=== PATIENT | male | born 1935 | race Caucasian/White ===

== ENCOUNTER 2016-11-19 09:30 | Inpatient (IN) | payer OTHER ==
[2016-10-24 13:01] VITALS: BMI 29.0
--- NOTE | 2016-10-24 13:45 | PAT Medication Instructions ---
Service Date Oct 24, 2016. Current Home Medication List Acetaminophen Tab (Tylenol), 325-650 MG PO PRN Amlodipine (Norvasc), 5 MG PO QAM Ascorbic Acid (Vitamin C), 500 MG PO QAM Bicalutamide (Casodex), 50 MG PO HS Calcium Carbonate-Vitamin D (Calcium + D), 1 TAB PO BID Coenzyme Q10 (Ubidecarenone) (Coq10), 400 MG PO QAM Corona Dextrin (Fiber Powder), 1 DOSE PO QAM Docusate Sodium (Colace), 1 CAP PO QAM Leuprolide Acetate (Lupron Depot), 30 MG INJ [id number] Levothyroxine Sodium (Levothyroxine Sodium), 1 TAB PO 2xweek Levothyroxine Sodium (Levothyroxine Sodium), 1 TAB PO 5XWEEK Losartan Potassium (Cozaar), 25 MG PO QAM Multivitamin (Multivitamin), 1 TAB PO QAM Ranitidine (Zantac), 150 MG PO QAM Simvastatin (Zocor), 20 MG PO QPM Warfarin Sod (Jantoven), 2.5 MG PO 6XWEEK Warfarin Sod (Jantoven), 3.75 MG PO TUESDAYS Medication Instructions For Your Scheduled Surgery - Continue as directed: Leuprolide Acetate (Lupron Depot), 30 MG INJ [id number] - Check with surgeon for instructions: Bicalutamide (Casodex), 50 MG PO HS - Check with surgeon/coumadin clinic for instructions: Warfarin Sod (Jantoven), 2.5 MG PO 6XWEEK Warfarin Sod (Jantoven), 3.75 MG PO TUESDAYS - Hold the following medications 2 weeks prior to surgery: Coenzyme Q10 (Ubidecarenone) (Coq10), 400 MG PO QAM - Hold the following medications the morning of surgery: Ranitidine (Zantac), 150 MG PO QAM Losartan Potassium (Cozaar), 25 MG PO QAM Multivitamin (Multivitamin), 1 TAB PO QAM Docusate Sodium (Colace), 1 CAP PO QAM Corona Dextrin (Fiber Powder), 1 DOSE PO QAM Calcium Carbonate-Vitamin D (Calcium + D), 1 TAB PO BID Ascorbic Acid (Vitamin C), 500 MG PO QAM - Take the following medications the morning of surgery with a sip of water: Levothyroxine Sodium (Levothyroxine Sodium), 1 TAB PO 2xweek Levothyroxine Sodium (Levothyroxine Sodium), 1 TAB PO 5XWEEK Amlodipine (Norvasc), 5 MG PO QAM Acetaminophen Tab (Tylenol), 325-650 MG PO PRN (if needed) - Take the following medications as scheduled the night before surgery: Simvastatin (Zocor), 20 MG PO QPM Calcium Carbonate-Vitamin D (Calcium + D), 1 TAB PO BID Acetaminophen Tab (Tylenol), 325-650 MG PO PRN (if needed) If you have any questions please call us at [phone] or [phone] or [phone]
[2016-10-24 14:23] LABS: BASO % 0.7 %; BASO ABS # 0.04 K/uL (0-0.2); COMPLETE YES; EOS % 7.8 %; HEMATOCRIT 40.3 % (42-52); IG% 0.3 %; LYMPH % 23.7 %; LYMPH ABS # 1.46 K/uL (1.2-3.4); MEAN CELL VOLUME 94.4 fL (80-100); MEAN CORPUSCULAR HEMOGLOBIN 31.9 pg (25-34); MEAN CORPUSCULAR HGB CONC 33.7 g/dl (32-36); MEAN PLATELET VOLUME 9.2 fL (7.4-10.4); MONO % 9.6 %; NEUT % 57.9 %; PLATELET COUNT 208 K/uL (130-400); RED BLOOD COUNT 4.27 M/uL (4.7-6.1); WHITE BLOOD COUNT 6.15 K/uL (4.8-10.8)
[2016-10-24 14:25] LABS: URINE APPEARANCE CLEAR (CLEAR); URINE BILIRUBIN NEG (NEG); URINE COLOR YELLOW; URINE NITRITE NEG (NEG); URINE PH 7.5 (4.5-7.5); URINE SPECIFIC GRAVITY 1.015 (1.000-1.030); UROBILINOGEN NEG (NEG); ZZUR CULT IF INDIC CLEAN CATCH NO
[2016-10-24 14:29] LABS: MANUAL MICROSCOPIC REQUIRED? NO; REVIEW REQ? NO
[2016-10-24 14:32] LABS: INR 1.9 (0.9-1.1); PARTIAL THROMBOPLASTIN RATIO 1.3; PROTHROMBIN TIME (PATIENT) 21.4 SECONDS (9.0-12.0)
--- NOTE | 2016-10-24 14:34 | DIAGNOSTIC IMAGING REPORT ---
CHEST 2 VIEWS ROUTINE CLINICAL HISTORY: Preoperative chest COMPARISON STUDY: No previous studies for comparison. FINDINGS: The cardiac and mediastinal contours are normal. There is no evidence of focal pulmonary consolidation. There is no evidence of failure. No pleural effusions are visualized.[ There is minor linear atelectasis/scarring within the right middle lobe. Mild soft tissue prominence of the azygos region is likely vascular IMPRESSION: No active disease in the chest. Electronically signed by: Charli Gutierrez M.D. 10/24/2016 2:33 PM Dictated Date/Time: 10/24/2016 2:32 PM
[2016-10-24 15:09] LABS: ESTIMATED AVERAGE GLUCOSE 105 mg/dl; HA1C FLAG Normal (Normal)
[2016-10-24 15:38] LABS: CALCIUM 9.2 mg/dl (8.5-10.1); CREATININE 1.2 mg/dl (0.60-1.40); POTASSIUM 4.3 mmol/L (3.5-5.1)
--- NOTE | 2016-11-18 19:03 | HISTORY & PHYSICAL EXAMINATION ---
DATE OF ADMISSION: 11/19/2016 CHIEF COMPLAINT: Chronic right shoulder pain. HISTORY OF PRESENT ILLNESS: This is an 81-year-old male patient of Dr. Felder complaining of chronic right shoulder pain, longstanding and now progressively getting worse. The patient has failed conservative treatment and wished to proceed with a right total shoulder arthroplasty. The patient has been diagnosed with end-stage osteoarthritis per clinical and radiographic exams. PAST MEDICAL HISTORY: Atrial fibrillation, history of a TIA, abnormal bleeding, acid reflux, prostate cancer and BPH. SOCIAL HISTORY: Nonsmoker, occasional drinker. PAST SURGICAL HISTORY: Tonsils, cataracts and prostate. REVIEW OF SYSTEMS: The patient complains of chronic right shoulder pain. Otherwise, denies any shortness of breath, chest pain, nausea, vomiting or joint complaints. FAMILY HISTORY: Noncontributory. MEDICATIONS: Simvastatin 20 mg daily, fiber daily, docusate sodium daily, ranitidine 75 mg daily, fenofibrate powder daily, leuprolide acetate 30 mg every 4 months, levothyroxine 50 mcg daily, bicalutamide 50 mg daily, Coumadin 2.5 mg 1-1/2 tablet daily, losartan 25 mg daily, amlodipine 5 mg daily, coenzyme Q10 daily, calcium daily, multivitamin daily and vitamin C daily. ALLERGIES: No known drug allergies. PHYSICAL EXAMINATION: GENERAL: Well-developed and well-nourished 81-year-old male patient of Dr. Felder. HEENT: Normocephalic and atraumatic. Extraocular motions are intact. Pupils are equal and reactive to light. HEART: Regular rate and rhythm, no murmurs appreciated. LUNGS: Clear. ABDOMEN: Soft and nontender. Bowel sounds are present. EXTREMITIES: Right shoulder reveals active range of motion to 140, passively to 170. He has 4/5 strength. He has crepitation with passive range of motion. Neurologically and neurovascularly he is intact in his right upper extremity. DIAGNOSES: Right shoulder end-stage osteoarthritis with a history of atrial fibrillation, transient ischemic attack, abnormal bleeding, acid reflux, prostate cancer and benign prostatic hyperplasia. PLAN: The patient was advised of her diagnoses. Indications, risks, benefits and postop course have all been reviewed. The patient wished to proceed with a right total shoulder arthroplasty. Necessary consent forms, preoperative testing and clearances will be obtained. [facility]ITAL[facility]
[~2016-11-19] VITALS: Ht 172.7 cm; Wt 85.8 kg
[2016-11-19] VITALS (9 sets, daily range): BP systolic 104–172; BP diastolic 64–95; PULSE 51–64; TEMP 36.2–36.6; O2SAT 92–97; Ht 172.7 cm; Wt 85.8 kg
[~2016-11-19 09:30] MED LIST: ACET325T96 PO; ACETAMINOPHEN 500 MG TAB PO SCH; AMLO-110 PO; ASCO1CAP3 PO; BICA50TA2 PO; CALC600T9 PO; CEFAZOLIN 2000 MG/60 ML D5W 60 ML IV SCH; COEN400C5 PO; CORN1POW2 PO; CeleBREX 200 MG CAP PO SCH; DEXAMETHASONE 4 MG TAB PO SCH; DOCU-94 PO; FAMOTIDINE 20 MG TAB PO SCH; GABAPENTIN 300 MG CAP PO SCH; LACTATED RINGER'S 1000ML 1,000 ML IV SCH; LEUP30IN3 INJ; LEVO100T7 PO; LEVO50TA6 PO; LOSA1TAB PO; METOCLOPRAMIDE HCL 10 MG TAB PO SCH; MULT-506 PO; ROPIVACAINE 0.5% 5 MG/ML 30 ML VIAL ONE; SIMV20TA2 PO; WARF2.5T8 PO; ZNTT/150 PO
[2016-11-19] MEDS ORDERED: lovenox SC (10:30)
[2016-11-19 10:42] LABS: INR 1.1 (0.9-1.1); PARTIAL THROMBOPLASTIN RATIO 1.1; PROTHROMBIN TIME (PATIENT) 11.4 SECONDS (9.0-12.0)
[2016-11-19] MEDS ORDERED: ENOX80IN SQ (10:50)
[2016-11-19] MEDS ORDERED: LIDOCAINE HCL 2% 2 ML VIAL (20MG/ML) ONE (11:17)
[2016-11-19] MEDS ORDERED: ROCURONIUM BROMIDE 10 MG/ML 5 ML VIAL ONE (11:17)
[2016-11-19] MEDS ORDERED: GLYCOPYRROLATE INJ 0.2 MG/ML VIAL ONE (11:17)
[2016-11-19] MEDS ORDERED: DEXAMETHASONE SOD INJ 4 MG/ML VIAL ONE (11:17)
[2016-11-19] MEDS ORDERED: ONDANSETRON INJ 2 MG/ML 2 ML VIAL ONE (11:17)
[2016-11-19] MEDS ORDERED: NEOSTIGMINE METHYLSULFATE 5 MG/5 ML SYR ONE (11:17)
[2016-11-19] MEDS ORDERED: FENTANYL CITRATE INJ 50 MCG/1 ML 2 ML VIAL ONE (11:17)
[2016-11-19] MEDS ORDERED: PROPOFOL IV EMULSION 10 MG/ML 20 ML VIAL IV ONE (11:17)
[2016-11-19] MEDS ORDERED: MIDAZOLAM HCL 1 MG/ML 2ML VIAL ONE (11:17)
--- NOTE | 2016-11-19 11:18 | History & Physical Bridge Note ---
H&P Re-Evaluation Bridge Note: I have examined the patient, reviewed the History & Physical and in the interval since the performance of the History & Physical I have noted the following changes of clinical significance: No changes noted
[2016-11-19] MEDS ORDERED: BACITRACIN 50000 UNIT VIAL ONE (11:52)
[2016-11-19] MEDS ORDERED: EpINEphrine HCL INJ 1 MG/ML 5ML SYRINGE ONE (11:56)
[2016-11-19] MEDS ORDERED: ATROPINE SULFATE 0.1 MG/ML 5ML SYR IV PRN (13:15)
[2016-11-19] MEDS ORDERED: ONDANSETRON INJ 2 MG/ML 2 ML VIAL IV PRN ×2 (13:15→15:45)
[2016-11-19] MEDS ORDERED: EpHEDrine SULFATE INJ 50 MG/ML AMP IV PRN (13:15)
[2016-11-19] MEDS ORDERED: ESMOLOL HCL 10 MG/ML 10 ML VIAL ONE (15:16)
[2016-11-19] MEDS ORDERED: EpHEDrine SULFATE 50MG/5ML SYR ONE (15:16)
[2016-11-19] MEDS ORDERED: LABETALOL HCL IV 5 MG/ML 20ML IV ONE ×2 (15:23→15:39)
--- NOTE | 2016-11-19 15:34 | [facility] Post Operative Brief Note ---
Immediate Operative Summary Operative Date Nov 19, 2016. Pre-Operative Diagnosis Right shoulder end-stage osteoarthritis Post-Operative Diagnosis Right shoulder end-stage osteoarthritis,biceps tenosynovitis Procedure(s) Performed Right total shoulder arthroplasty,biceps tenodesis Surgeon Dr Barney Indoor Landscape Architect Surgeon(s) Gildardo Molina PA-C Estimated Blood Loss 50ML Findings end stage djd oa Specimens Right Humeral Head Drains 2 hemovac Anesthesia general and regional Complication(s) None Disposition Recovery Room / PACU
[2016-11-19] MEDS ORDERED: BISACODYL 10 MG SUPP PR PRN (15:45)
[2016-11-19] MEDS ORDERED: MAGNESIUM HYDROXIDE SUSP 30 ML UDC PO PRN (15:45)
[2016-11-19] MEDS ORDERED: MoRPHine SULFATE 2 MG/ML CARP IV PRN (15:45)
[2016-11-19] MEDS ORDERED: ALUMINUM/MAGNESIUM SUSP 30 ML UDC PO PRN (15:45)
--- NOTE | 2016-11-19 16:01 | DIAGNOSTIC IMAGING REPORT ---
RIGHT SHOULDER MIN 2 VIEWS ROUTINE CLINICAL HISTORY: Postop examination COMPARISON: None. DISCUSSION: There are postsurgical changes of a total right shoulder arthroplasty. There is no dislocation. Overlying skin chelle and surgical drains are evident. IMPRESSION: Postsurgical changes of a total right shoulder arthroplasty. Electronically signed by: Charli Gutierrez M.D. 11/19/2016 4:00 PM Dictated Date/Time: 11/19/2016 3:59 PM
[2016-11-19] MEDS: FENTANYL CITRATE INJ 50 MCG/1 ML 2 ML VIAL IV PRN ×2 (16:09→16:16)
--- NOTE | 2016-11-19 16:27 | Anesthesiology Progress Note ---
Anesthesia Post Op Note Date & Time Nov 19, 2016 at 16:27 Vital Signs Pain Intensity: 2 Vital Signs Past 12 Hours Date Time Temp Pulse Resp B/P (MAP) Pulse Ox O2 Delivery O2 Flow Rate FiO2 11/19/16 16:20 36.3 49 15 126/73 93 Nasal Cannula 4 11/19/16 16:10 50 17 155/85 93 Nasal Cannula 4 11/19/16 16:00 60 16 149/82 93 Nasal Cannula 4 11/19/16 15:50 50 16 148/85 95 Nasal Cannula 4 11/19/16 15:40 84 18 155/95 93 Oxymask 10 11/19/16 15:32 36.2 82 16 140/86 93 Oxymask 10 11/19/16 09:50 36.4 54 20 172/90 96 Room Air Notes Mental Status: alert / awake / arousable, participated in evaluation Pt Amnestic to Procedure: Yes Nausea / Vomiting: adequately controlled Pain: adequately controlled Airway Patency, RR, SpO2: stable & adequate BP & HR: stable & adequate Hydration State: stable & adequate Anesthetic Complications: no major complications apparent
[2016-11-19] MEDS ORDERED: WARFARIN SOD 5 MG TAB PO ONE (17:15)
[2016-11-19] MEDS: D5W AND 1/2NSS + 20MEQ KCL 1,000 ML IV SCH (17:20)
[2016-11-19] MEDS: OXYCODONE HCL IR 5 MG TAB (IMMEDIATE RELEASE) PO PRN (19:21)
[2016-11-19] MEDS: SIMVASTATIN 20 MG TAB PO SCH (20:39)
[2016-11-19] MEDS: SENNA 8.6 MG TAB PO SCH (20:39)
[2016-11-19] MEDS: DOCUSATE SODIUM 100 MG CAP PO SCH (20:39)
[2016-11-19] MEDS: BICALUTAMIDE 50 MG TAB PO SCH (20:41)
[2016-11-19] MEDS: CEFAZOLIN IV 2,000 MG in DEXTROSE 5% 50ML 50 ML IV SCH (20:46)
[2016-11-19] MEDS: ACETAMINOPHEN 500 MG TAB PO SCH (21:47)
[2016-11-20 03:25] VITALS: BP 128/73; PULSE 54; TEMP 36.4; O2SAT 96
[2016-11-20] MEDS: CEFAZOLIN IV 2,000 MG in DEXTROSE 5% 50ML 50 ML IV SCH (03:27)
[2016-11-20] MEDS: OXYCODONE HCL IR 5 MG TAB (IMMEDIATE RELEASE) PO PRN ×4 (03:27→20:55)
--- NOTE | 2016-11-20 03:48 | OPERATIVE REPORT ---
DATE OF OPERATION: 11/19/2016 INDICATION FOR PROCEDURE: An 81-year-old male who is quite active individual. He has a chronic progressive pain and disability due to osteoarthritis in his right shoulder. He is now completely [id number], has severe pain and wants to proceed with shoulder replacement surgery. His radiographs demonstrate he has concentric wear [id number] in the glenoid. He still has maintained subacromial space consistent with good rotator cuff. PREOPERATIVE DIAGNOSIS: End-stage right shoulder osteoarthritis glenohumeral joint. POSTOPERATIVE DIAGNOSIS: Same including biceps tenosynovitis and some partial tearing of the undersurface of rotator cuff infraspinatus. PROCEDURE: Right total shoulder arthroplasty, biceps tenodesis, debridement rotator cuff. SURGEON: Christiano Barney MD DOOR LINER HELPER: MARIA TERESA Castañeda ANESTHESIA: Regional block and general. OPERATIVE PROCEDURE: The patient had a regional block placed in the holding area then and was transferred to the operating room and placed under general anesthetic, then positioned on the operating room table in a 30 degree beach chair position with a towel roll in the medial border of his right scapula. He was translated to right side of the bed, so his shoulder could be manipulated off the bed as necessary. A foam headrest was placed. He had protective eyewear placed. He had TEDs and SCDs. His right shoulder was examined under anesthesia. He had about 160 degrees of forward elevation and 30 degrees of external rotation and 90 degrees of abduction. Clearly had [id number] crepitation. He had a little bit of ligamentous laxity in general side from the significant loss of external rotation. His right shoulder was then sterilely prepped and draped with ChloraPrep. An anterior deltopectoral approach was performed. Skin was incised sharply. Subcutaneous flaps were elevated. The cephalic vein was dissected out and retracted laterally with the deltoid. The large crossing vein was tied off with silk ties and divided. The upper centimeter of the pectoralis was released for inferior exposure. Biceps tendon sheath was opened up and there was marked biceps tenosynovitis. The biceps tenosynovitis was resected and the biceps was tenodesed to the pectoralis tendon using [id number] #2 FiberWire sutures. The proximal biceps was released at this time. The circumflex vessels were identified, tied off with silk ties and divided laterally. The rotator cuff was noted to be intact. He had some mild bursitis which was resected. The rotator cuff was completely intact on the undersurface. The clavipectoral fascia was divided at the lateral margin of conjoined tendon extended up to the CA ligament. CA ligament was preserved. A self-retaining retractor was placed and then the rotator interval was opened up and divided laterally to the lesser tuberosity area and then a transtendinous incision was made leaving a cuff of tissue on the lesser tuberosity for repair. A running #1 Vicryl suture was placed into the subscapularis tendon and capsule for traction. The muscle fibers of the subscapularis were then split in the direction of their fibers just at the level of the circumflex vessels protecting axillary nerve inferiorly. We used a Kitner elevator to release these lower fibers off the capsule and placed a blunt Melanie retractor to protect the axillary nerve. The humerus was gradually externally rotated, exposing some of the inferior humeral osteophytes, they were moderate in size. They were removed with artist chisel and a rongeur. The humeral articular surface demonstrated bone exposed the majority of the humeral head. There was little bit of articular cartilage still intact. The humeral head was then retracted posterior to the glenoid. Anterior capsular release was performed down to the glenoid. The anterior capsule was released off the anterior labrum and superior ligaments and capsule released down to the glenoid, so we had 360 degree release of the subscapularis. Subscap was tracked anteriorly. The labrum was removed circumferentially. Remainder of the biceps tendon was resected. The glenoid was noted to have articular cartilage on the anterior 20%, but the remainder of the glenoid was down the bone. At this time the humeral head was re-exposed with extension and external rotation. Humeral head cut was made anatomically and head cut was removed and measured to be a 50 mm diameter head. We trimmed some more osteophytes and then debrided the undersurface of the infraspinatus which was some fraying. I then went ahead and retracted the humeral head posterior to the glenoid. Then we exposed the glenoid curetted off the cartilage, so we had the true version of the glenoid and placed central drill hole and then went ahead and used the reamer for the Tornier CortiLoc Affiniti glenoid component. The central drill hole was made followed by the reamer for the 48 mm glenoid and then we reamed down a little bit anteriorly to take up any of the posterior wear on the glenoid back to normal version. Then we widened that hole, used the peripheral peg hole drill and then went ahead and did a trial reduction which was satisfactory. The trial was removed. Then after further irrigation, we cemented the final component which was the Affiniti CortiLoc glenoid component size 48. Central peg was press fit and remainder pegs were cemented and back side was cemented. We held this in place until the cement cured. Then we went ahead and exposed the humeral head cut surface with extension and external rotation. The starter awl was used followed by sequential broaches to size the canal to a size 4, then we broached it up to a 4 by the size 5, we rebroached it up to size 5. The 5 had the appropriate fit and fill. Then we looked at offsets and standard offset gave best coverage and we used the 50 x 19 head low offset 1.5. At this time, we reduced the trial to the glenoid and that demonstrated good stability. Then we chose this size. Trial was removed and then we placed 3 drill holes into the bicipital groove hard bone just lateral to the lesser tuberosity and placed transosseous #5 FiberWire sutures through around the lesser tuberosity, and then I irrigated out the canal and then the final component was assembled on the back table, taking note to plate the head on the appropriate offset. Then, the final component was impacted into the humerus with good press fit. This was reduced to the glenoid and then the subscapularis was repaired using the Romaine-Gumaro suture technique with the #5 FiberWires then used interrupted #2 FiberWires for soft tissue lateral row fixation, the rotator interval was closed maximal external rotation with interrupted #2 FiberWires. The patient had about 45 degrees of external rotation without tension on the repair. I used abduction and 160 degrees of forward elevation with stable shoulder. After further irrigation, the pectoralis tendon was repaired with [id number] #2 FiberWire sutures placing the sutures back through the biceps tendon to reinforce the tenodesis. Then the 2 Hemovac drains were placed and then the deltopectoral interval was closed with [id number] #1 Vicryl sutures. Subcutaneous tissues closed with interrupted 2-0 Vicryl sutures, skin closed with chelle. Sterile dressings were applied. The patient tolerated the procedure well. MARIA TERESA Castañeda was my visitor services assistant. He functioned as visitor services assistant throughout the entire procedure. He assisted in soft tissue retraction, instrument management, suture management, and he did perform the outer subcutaneous skin closure and will participate in postoperative care of patient. I attest to the content of the Intraoperative Record and any orders documented therein. Any exception s are noted below.
[2016-11-20] MEDS: ACETAMINOPHEN 500 MG TAB PO SCH ×3 (05:39→21:35)
[2016-11-20] MEDS: LEVOTHYROXINE 50 MCG TAB PO SCH (05:39)
[2016-11-20] MEDS: D5W AND 1/2NSS + 20MEQ KCL 1,000 ML IV SCH ×2 (05:43→17:38)
[2016-11-20 06:19] LABS: HEMATOCRIT 34.9 % (42-52); MEAN CELL VOLUME 94.8 fL (80-100); MEAN CORPUSCULAR HEMOGLOBIN 32.3 pg (25-34); MEAN CORPUSCULAR HGB CONC 34.1 g/dl (32-36); MEAN PLATELET VOLUME 9.3 fL (7.4-10.4); PLATELET COUNT 197 K/uL (130-400); RED BLOOD COUNT 3.68 M/uL (4.7-6.1)
[2016-11-20 06:55] LABS: BUN/CREATININE RATIO 16.3 (10-20); CALCIUM 8.3 mg/dl (8.5-10.1); CREATININE 1.2 mg/dl (0.60-1.40); POTASSIUM 4.8 mmol/L (3.5-5.1)
[2016-11-20 07:45] VITALS: BP 147/76; PULSE 50; TEMP 36.9; O2SAT 92
--- NOTE | 2016-11-20 07:55 | Orthopedic Progress Note ---
Orthopedic Progress Note Date of Service Nov 20, 2016. Subjective Post OP Day: 1 Reports: feeling well, Denies: chest pain, SOB, nausea / vomiting, light headedness, calf pain Objective calves soft nontender, N/V intact, capillary refill less than 2 sec., dressing C /D/I, A&O x3, hemovac drainage (125/50CC PER SHIFT) Date Time Temp Pulse Resp B/P (MAP) Pulse Ox O2 Delivery O2 Flow Rate FiO2 11/20/16 07:30 Room Air 11/20/16 03:25 36.4 54 16 128/73 (91) 96 Nasal Cannula 3.0 11/20/16 00:10 Nasal Cannula 3.0 11/19/16 23:32 36.4 54 18 104/64 (77) 97 Nasal Cannula 3.0 11/19/16 19:39 36.4 64 18 118/75 (89) 92 Nasal Cannula 4.0 11/19/16 18:45 122/73 (89) 11/19/16 18:41 36.3 64 18 165/95 (118) 93 Nasal Cannula 4.0 11/19/16 18:02 92 Nasal Cannula 4.0 11/19/16 17:41 36.2 51 20 138/76 (96) 92 Nasal Cannula 4.0 11/19/16 17:32 92 Nasal Cannula 4.0 11/19/16 17:11 36.4 52 18 140/79 (99) 92 Nasal Cannula 4.0 11/19/16 16:40 36.6 51 20 123/73 (90) 92 Nasal Cannula 4.0 11/19/16 16:20 36.3 49 15 126/73 93 Nasal Cannula 4 11/19/16 16:10 50 17 155/85 93 Nasal Cannula 4 11/19/16 16:00 60 16 149/82 93 Nasal Cannula 4 11/19/16 15:50 50 16 148/85 95 Nasal Cannula 4 11/19/16 15:40 84 18 155/95 93 Oxymask 10 11/19/16 15:32 36.2 82 16 140/86 93 Oxymask 10 11/19/16 09:50 36.4 54 20 172/90 96 Room Air Laboratory Results 24 Hours: Test 11/19/16 10:09 11/20/16 05:30 Prothromb Time International Ratio 1.1 Prothrombin Time 11.4 SECONDS Hematocrit 34.9 % Hemoglobin 11.9 g/dL Assessment & Plan Assessment: POD#1 SP RIGHT TSA AFIB Inhouse Planning Pain Management: PO Tylenol, Oxy IR DVT Prophylaxis: TEDs, SCDs, Coumadin, Lovenox Discharge Planning Discharge Planning: home with home health ([facility] TOMORROW.)
[2016-11-20] MEDS: AMLODIPINE BESYLATE 5 MG TAB PO SCH (08:23)
[2016-11-20] MEDS: DOCUSATE SODIUM 100 MG CAP PO SCH ×2 (08:23→20:49)
[2016-11-20] MEDS: MULTIVITAMIN TAB PO SCH (08:24)
[2016-11-20] MEDS: LOSARTAN POTASSIUM 25 MG TAB PO SCH (08:24)
[2016-11-20] MEDS: PANTOprazole SOD 40 MG TAB PO SCH (08:24)
[2016-11-20] MEDS ORDERED: ENOXAPARIN 40 MG/0.4 ML SYR SQ SCH (09:00)
[2016-11-20] MEDS ORDERED: MULTIVITAMIN TAB PO SCH (09:00)
[2016-11-20] MEDS ORDERED: COENZYME Q10 400 MG PO SCH (09:00)
--- NOTE | 2016-11-20 09:56 | Progress Note ---
Medicine Progress Note Date & Time of Visit: Nov 20, 2016 at 09:49. Subjective patient seen sitting in bed in good spirits states he feels fine overall pain well controlled denies chest pain, dyspnea, palpitations, dizziness no bleeding noted except for drain denies other symptoms Objective Last 8 Hrs Date Time Temp Pulse Resp B/P (MAP) Pulse Ox O2 Delivery O2 Flow Rate FiO2 11/20/16 07:45 36.9 50 16 147/76 (99) 92 Room Air 11/20/16 07:30 Room Air 11/20/16 03:25 36.4 54 16 128/73 (91) 96 Nasal Cannula 3.0 Physical Exam: General- oriented x 3, not in distress, speaks in sentences with no effort Head- atraumatic Eyes- EOMI, anicteric ENT- oropharynx clear Neck- supple, no JVD, no adenopathy Lungs- clear to auscultation b/l Heart- regular rhythm; no murmur, normal rate Abdomen- normal bowel sounds, soft, nontender Extremities- no pretibial edema, no calf tenderness; peripheral pulses intact right shoulder: dressing, drain in place Neuro- alert, oriented x 3; no gross focal deficits Skin- warm & dry Laboratory Results: Last 24 Hours Test 11/19/16 10:09 11/20/16 05:30 Prothrombin Time 11.4 SECONDS Prothromb Time International Ratio 1.1 Activated Partial Thromboplast Time 28.6 SECONDS Partial Thromboplastin Ratio 1.1 White Blood Count 10.40 K/uL Red Blood Count 3.68 M/uL Hemoglobin 11.9 g/dL Hematocrit 34.9 % Mean Corpuscular Volume 94.8 fL Mean Corpuscular Hemoglobin 32.3 pg Mean Corpuscular Hemoglobin Concent 34.1 g/dl RDW Standard Deviation 45.0 fL RDW Coefficient of Variation 13.0 % Platelet Count 197 K/uL Mean Platelet Volume 9.3 fL Sodium Level 138 mmol/L Potassium Level 4.8 mmol/L Chloride Level 106 mmol/L Carbon Dioxide Level 25 mmol/L Anion Gap 7.0 mmol/L Blood Urea Nitrogen 20 mg/dl Creatinine 1.20 mg/dl Est Creatinine Clear Calc Drug Dose 51.5 ml/min Estimated GFR () 65.3 Estimated GFR (Non- 56.4 BUN/Creatinine Ratio 16.3 Random Glucose 199 mg/dl Calcium Level 8.3 mg/dl Assessment & Plan 81 year old male with history of Paroxysmal A fib on chronic coumadin, Hypertension, CVA, Prostate CA, GERD, presenting with right shoulder surgery. S/P RIGHT SHOULDER SURGERY - doing well overall - monitor H&H PAROXYSMAL ATRIAL FIBRILLATION HISTORY OF CVA ON CHRONIC COUMADIN - Coumadin Clinic notes reviewed patient to be on Lovenox 80mg IV BID + coumadin for bridging until INR therapeutic resume coumadin today at 3.75mg po will repeat INR daily and titrate coumadin accordingly patient usually take 3.75mg on tu and 2.5mg other days HYPERTENSION - continue Losartan + Amlodipine PROSTATE CA - continue Casodex GERD - continue Ranitidine Thank you for this consultation. We will follow the patient with you during their hospital stay. You can reach a member of the [facility] Hospitalist Team 03/11 via pager @ . Current Inpatient Medications: Current Inpatient Medications Medications (Trade) Dose Ordered Sig/Roseline Route Start Time Stop Time Status Last Admin Dose Admin Amlodipine Besylate (Norvasc Tab) 5 mg QAM PO 11/20/16 09:00 12/20/16 08:59 11/20/16 08:23 5 MG Bicalutamide (Casodex Tab) 50 mg HS PO 11/19/16 21:00 12/19/16 20:59 11/19/16 20:41 50 MG Enoxaparin Sodium (Lovenox Inj) 80 mg Q12 SQ 11/21/16 09:00 12/21/16 08:59 Levothyroxine Sodium (Synthroid Tab) 50 mcg DAILYBB PO 11/20/16 06:00 12/20/16 05:59 11/20/16 05:39 50 MCG Losartan Potassium (coZAAR TAB) 25 mg QAM PO 11/20/16 09:00 12/20/16 08:59 11/20/16 08:24 25 MG Simvastatin (Zocor Tab) 20 mg QPM PO 11/19/16 21:00 12/19/16 20:59 11/19/16 20:39 20 MG Morphine Sulfate (MoRPHine SULFATE INJ) 2 mg Q4HWA PRN IV 11/19/16 15:45 12/03/16 15:44 Ondansetron HCl (Zofran Inj) 4 mg Q6H PRN IV 11/19/16 15:45 12/19/16 15:44 Al Hydroxide/Mg Hydroxide (Maalox Susp) 30 ml Q4H PRN PO 11/19/16 15:45 12/19/16 15:44 Pantoprazole Sodium (Protonix Tab) 40 mg QAM PO 11/20/16 09:00 12/20/16 08:59 11/20/16 08:24 40 MG Potassium Chloride/Dextrose/ Sod Cl 1,000 ml @ 80 mls/hr [id number] IV 11/19/16 17:00 12/19/16 16:59 11/20/16 05:43 80 MLS/HR Oxycodone HCl (Roxicodone Immediate Rel Tab) `1-2 TABS FOR PAIN `1 TAB... Q4H PRN PO 11/19/16 15:45 12/03/16 15:44 11/20/16 07:43 5 MG Acetaminophen (Tylenol Tab) 1,000 mg Q8 PO 11/19/16 22:00 12/19/16 21:59 11/20/16 05:39 1,000 MG Magnesium Hydroxide (Milk Of Magnesia Susp) 30 ml Q6H PRN PO 11/19/16 15:45 12/19/16 15:44 Bisacodyl (Dulcolax Supp) 10 mg DAILY PRN [place] 11/19/16 15:45 12/19/16 15:44 Senna (Senokot Tab) 17.2 mg HS PO 11/19/16 21:00 12/19/16 20:59 11/19/16 20:39 17.2 MG Docusate Sodium (coLACE CAP) 100 mg BID PO 11/19/16 21:00 12/19/16 20:59 11/20/16 08:23 100 MG Multivitamins (Multivitamin Tab) 1 tab DAILY PO 11/20/16 09:00 12/20/16 08:59 11/20/16 08:24 1 TAB Warfarin Sodium (Coumadin Tab) 3.75 mg ONE PO 11/20/16 16:00 12/20/16 15:59 UNV
[2016-11-20 11:05] VITALS: BP 127/72; PULSE 51; TEMP 36.5; O2SAT 92
[2016-11-20 15:14] VITALS: BP 122/76; PULSE 62; TEMP 36.4; O2SAT 94
[2016-11-20] MEDS ORDERED: WARFARIN SOD 1.25 MG TAB PO ONE (16:00)
[2016-11-20] MEDS ORDERED: WARFARIN SOD 2.5 MG TAB PO SCH (16:00)
[2016-11-20] MEDS ORDERED: NURSING VERBAL MED ORDER ONE (17:45)
[2016-11-20] MEDS: SENNA 8.6 MG TAB PO SCH (20:48)
[2016-11-20] MEDS: SIMVASTATIN 20 MG TAB PO SCH (20:49)
[2016-11-20] MEDS: BICALUTAMIDE 50 MG TAB PO SCH (20:52)
[2016-11-20 23:13] VITALS: BP 134/74; PULSE 69; TEMP 36.8; O2SAT 91
[2016-11-21] MEDS: LEVOTHYROXINE 50 MCG TAB PO SCH (05:39)
[2016-11-21] MEDS: ACETAMINOPHEN 500 MG TAB PO SCH (05:40)
[2016-11-21 06:13] LABS: HEMATOCRIT 36.9 % (42-52); MEAN CELL VOLUME 96.3 fL (80-100); MEAN CORPUSCULAR HEMOGLOBIN 32.4 pg (25-34); MEAN CORPUSCULAR HGB CONC 33.6 g/dl (32-36); PLATELET COUNT 189 K/uL (130-400); RED BLOOD COUNT 3.83 M/uL (4.7-6.1); WHITE BLOOD COUNT 9.29 K/uL (4.8-10.8)
[2016-11-21 06:24] LABS: INR 1.3 (0.9-1.1); PROTHROMBIN TIME (PATIENT) 14.4 SECONDS (9.0-12.0)
[2016-11-21 06:54] LABS: BUN/CREATININE RATIO 20.6 (10-20); CALCIUM 8.5 mg/dl (8.5-10.1); CREATININE 1.2 mg/dl (0.60-1.40); POTASSIUM 4.3 mmol/L (3.5-5.1)
[2016-11-21 06:58] VITALS: BP 161/89; PULSE 65; TEMP 36.8; O2SAT 93
[2016-11-21] MEDS: MULTIVITAMIN TAB PO SCH (07:25)
[2016-11-21] MEDS: PANTOprazole SOD 40 MG TAB PO SCH (07:26)
[2016-11-21] MEDS: DOCUSATE SODIUM 100 MG CAP PO SCH (07:26)
[2016-11-21] MEDS: LOSARTAN POTASSIUM 25 MG TAB PO SCH (07:26)
[2016-11-21] MEDS: AMLODIPINE BESYLATE 5 MG TAB PO SCH (07:27)
[2016-11-21 07:53] VITALS: O2SAT 93
[2016-11-21] MEDS ORDERED: ENOXAPARIN 80 MG/0.8 ML SYR SQ SCH (09:00)
[2016-11-21 09:03] VITALS: BP 129/83; PULSE 73; O2SAT 94
--- NOTE | 2016-11-21 11:18 | Discharge Instructions ---
Discharge Instructions Date of Service Nov 21, 2016. Admission Reason for Admission: Right Shoulder Degenerative Joint Disease Discharge Discharge Diagnosis / Problem: Right Shoulder Djd Discharge Goals Goal(s): Decrease discomfort, Improve function, Increase independence Activity Recommendations Activity Limitations: per Instructions/Follow-up section Weightbearing Status: Right non-weightbearing . Instructions / Follow-Up Instructions / Follow-Up ACTIVITY RECOMMENDATIONS: SELF CARE INSTRUCTIONS AFTER TOTAL SHOULDER ARTHROPLASTY A. You may do daily exercises as taught in physical therapy while in hospital. No lifting with the operative arm. Please schedule your outpatient physical therapy appointment to begin within 2-3 days after leaving the hospital. Specific restrictions will be written on your physical therapy prescription that is provided to you. B. You are to wear your sling/immobilizer at all times EXCEPT when performing your daily exercises, participating in physical therapy and for hygiene purposes. C. You may perform dry, daily dressing changes. Please keep your incision covered. You may shower 48 hours after surgery. Do not apply soap or any ointment/ lotions directly over incision. Do not soak incision in bath tub/swimming pool. D. You may use ice as needed to operative shoulder. SPECIAL CARE INSTRUCTIONS: MEDICATION INSTRUCTIONS: Resume your Coumadin and Lovenox once home. You will need to have your INR checked regularly. Follow the guidelines of your PCP or Video Journalist concerning your INR and use of Lovenox VERY IMPORTANT TO READ AND REVIEW A. There are a few signs you need to watch for after you are home. Call [facility] at [phone] if you experience any of the followin. Increased severe shoulder pain. Some pain is expected especially when you exercise. 2. Increased swelling in you shoulder or arm; pain or swelling in either upper extremity. 3. Any fluid drainage from the incision. 4. Shortness of breath or chest pain. B. Please call [facility] at [phone] if you have any questions or concerns about your operation or recovery. C. Call your physician if: 1. Temperature is greater than 101 degrees (F). 2. Pain is not relieved by prescribed pain medications. 3. Increase drainage or redness from incision. 4. Unanswered questions or concerns. FOLLOW UP VISIT: Please call [facility] at [phone] to schedule a follow up appointment with Dr. Barney or his PA in 12-14 days from your surgery date. Current Hospital Diet Patient's current hospital diet: AHA Diet (Heart Healthy) Discharge Diet Recommended Diet: AHA Diet (Heart Healthy) Procedures Procedures Performed: Right total shoulder arthroplasty,biceps tenodesis Pending Studies Studies pending at discharge: no Laboratory Results Hemoglobin A1c Test 10/24/16 13:58 Range/Units Estimated Average Glucose 105 mg/dl Hemoglobin A1c 5.3 4.5-5.6 % Medical Emergencies . Who to Call and When: Medical Emergencies: If at any time you feel your situation is an emergency, please call 911 immediately. . Non-Emergent Contact Non-Emergency issues call your: Surgeon Call Non-Emergent contact if: temperature is above 101.5, your pain is not controlled, your pain is worsening, wound has increased drainage, wound has increased redness . "Provider Documentation" section prepared by Gildardo Molina. . VTE Core Measure Inpt VTE Proph given/why not?: Enoxaparin (Lovenox)SQ, Warfarin (Coumadin), T.E.D. Stockings, SCD's [place] Drug Monitoring Program Search Results: patient reviewed within database, no issues identified
[2016-11-21] MEDS ORDERED: ACET-24 PO (11:19)
[2016-11-21] MEDS ORDERED: RXC5 PO (11:19)
[2016-11-21] MEDS ORDERED: ENOX80IN SQ (12:10)
[2016-11-21 12:19] VITALS: BP 161/89; PULSE 65; TEMP 36.8; O2SAT 93
--- NOTE | 2016-11-21 12:46 | Orthopedic Progress Note ---
Orthopedic Progress Note Date of Service Nov 21, 2016. Subjective Post OP Day: 2 Reports: feeling well, Denies: complaints Objective dressing C/D/I, A&O x3, CMS intact Date Time Temp Pulse Resp B/P (MAP) Pulse Ox O2 Delivery O2 Flow Rate FiO2 11/21/16 12:19 36.8 65 18 93 Room Air 11/21/16 07:53 93 Room Air 11/21/16 07:30 Room Air 11/21/16 06:58 36.8 65 18 161/89 (113) 93 Room Air 11/20/16 23:54 Room Air 11/20/16 23:13 36.8 69 16 134/74 (94) 91 Room Air 11/20/16 15:14 36.4 62 16 122/76 (91) 94 Room Air Laboratory Results 24 Hours: Test 11/21/16 05:57 Hematocrit 36.9 % Hemoglobin 12.4 g/dL Prothromb Time International Ratio 1.3 Prothrombin Time 14.4 SECONDS Assessment & Plan Assessment: POD#2 SP RIGHT TSA AFIB Plan: Plan for dc to home today. Continue Lovenox bridging until INR 2 - 3 Home health to do INR draws and send to PCP who will manage Coumadin/Lovenox Inhouse Planning Pain Management: PO Tylenol, Oxy IR DVT Prophylaxis: TEDs, SCDs, Coumadin, Lovenox Discharge Planning Discharge Planning: home with home health Pain Management: PO Tylenol, Oxy IR DVT Prophylaxis: Coumadin, Lovenox Therapy: Physical Therapy
[2016-11-21] MEDS: OXYCODONE HCL IR 5 MG TAB (IMMEDIATE RELEASE) PO PRN (12:58)
--- NOTE | 2016-11-21 13:08 | DISCHARGE SUMMARY ---
DISCHARGE DIAGNOSIS: Degenerative joint disease, right shoulder. SECONDARY DIAGNOSES: Atrial fibrillation, on chronic Coumadin; history of transient ischemic attack; bleeding disorder; gastroesophageal reflux disease; prostate cancer; benign prostatic hypertrophy. CONSULTS: Juventino Vigil MD COMPLICATIONS: None. PROCEDURES: Right total shoulder arthroplasty performed by Dr. Barney on 11/19/2016. BRIEF HISTORY: As dictated in history and physical. HOSPITAL SUMMARY: The patient was admitted on the above date and had the above-noted surgery performed which he tolerated well. On his first postoperative day, he was feeling well and had no complaints. Calves were soft and nontender, neurovascularly intact. Dressing was clean, dry and intact and he was alert and oriented x3. Vital signs were stable. He was afebrile and hemoglobin was 11.9. He had been restarted on his Coumadin and his Lovenox bridging, and was continued on PT protocol and his DVT prophylaxis and pain management. By his second postoperative day, he continued to remain stable. Dressings were intact. CMS was intact. Pain was controlled and he was remaining stable and it was felt that he could be discharged to home. For further review, please see chart. LAB AND X-RAY DATA: As per chart. DISCHARGE INSTRUCTIONS: The patient was discharged to home in satisfactory condition on 11/21/2016. DIET: Heart healthy diet, AHA. ACTIVITY: No weightbearing on the right upper extremity. Follow total shoulder arthroplasty instructions and special care instructions as noted. FOLLOWUP: Follow up with Dr. Barney in 2 weeks. The patient to call for appointment if one has not been made for you. DISCHARGE MEDICATIONS: Acetaminophen 1000 mg p.o. q. 8 hours, oxycodone 5-10 mg p.o. q. 4 hours p.r.n. Resume home meds as listed including Lovenox bridging until told to stop otherwise by your primary care physician. The patient will have regular INR draws with results sent to primary care physician who will continue to manage his Coumadin and Lovenox use.
[2016-11-25] MEDS ORDERED: WARFARIN PO SCH (16:00)
== END 2016-11-21 13:30 | disposition home health service (06) | DRG 483 ==
LOC: C.ACU 09:30 → C.3E 11:50 → ENRESERV 15:51
PROVIDERS: ADMIT Orthopaedic Surgery Sports Medicine; ATTEND Orthopaedic Surgery Sports Medicine
PROC: 0RRJ0JZ Replacement of Right Shoulder Joint with Synthetic Substitute, Open Approach (ICD-10-PCS; principal; 2016-11-19 11:30)
PROC: 0LS30ZZ Reposition Right Upper Arm Tendon, Open Approach (ICD-10-PCS; principal; 2016-11-19 11:30)
DX: M19.011 Primary osteoarthritis, right shoulder (principal); I48.91 Unspecified atrial fibrillation; K21.9 Gastro-esophageal reflux disease without esophagitis; M75.21 Bicipital tendinitis, right shoulder; N40.0 Benign prostatic hyperplasia without lower urinary tract symptoms; I10 Essential (primary) hypertension; E03.9 Hypothyroidism, unspecified; D64.9 Anemia, unspecified; R00.1 Bradycardia, unspecified; M85.80 Other specified disorders of bone density and structure, unspecified site; Z86.2 Personal history of diseases of the blood and blood-forming organs and certain disorders involving the immune mechanism; Z86.73 Personal history of transient ischemic attack (TIA), and cerebral infarction without residual deficits; Z85.46 Personal history of malignant neoplasm of prostate; Z79.899 Other long term (current) drug therapy; Z87.891 Personal history of nicotine dependence; Z79.01 Long term (current) use of anticoagulants